=== PATIENT | female | born 1970 | race Asian ===

== ENCOUNTER 2017-01-18 16:41 | Outpatient (CLI) | payer OTHER ==
[~2017-01-18 16:41] MED LIST: CARDIZEM60 MG PO; CELEBREX200 MG PO; DIGOXIN0.25 MG PO; HYDR10TA47 PO; METF500T PO; SPIRONOLACT25 MG PO; XANAX XR1 MG PO; ZANTAC 75 PO
[2017-04-19] MEDS ORDERED: GABA300C2 PO (18:42)
[2017-04-19] MEDS ORDERED: LORA1TAB17 PO (18:43)
[2017-04-19] MEDS ORDERED: PACERONE200 MG PO (18:44)
[2017-04-19] MEDS ORDERED: VITAMIN D-31000 UNIT PO (18:45)
[2017-04-19] MEDS ORDERED: MAGN400T4 PO (18:46)
[2017-04-19] MEDS ORDERED: ASPI-93 PO (18:49)
== END 2017-01-18 19:35 | disposition home or self-care (01) ==
LOC: US 16:41
DX: L02.212 Cutaneous abscess of back [any part, except buttock and flank] (principal)

== ENCOUNTER 2017-01-26 15:30 | Outpatient (CLI) | payer OTHER ==
[2017-04-19] MEDS ORDERED: GABA300C2 PO (18:42)
[2017-04-19] MEDS ORDERED: LORA1TAB17 PO (18:43)
[2017-04-19] MEDS ORDERED: PACERONE200 MG PO (18:44)
[2017-04-19] MEDS ORDERED: VITAMIN D-31000 UNIT PO (18:45)
[2017-04-19] MEDS ORDERED: MAGN400T4 PO (18:46)
[2017-04-19] MEDS ORDERED: ASPI-93 PO (18:49)
== END 2017-01-26 19:42 | disposition home or self-care (01) ==
LOC: RAD 15:30
DX: M25.562 Pain in left knee (principal)

== ENCOUNTER 2017-04-06 20:23 | Outpatient (CLI) | payer OTHER ==
[2017-04-06] MEDS ORDERED: LIPITOR20 MG PO (20:52)
[2017-04-06] MEDS ORDERED: ALTACE1.25 MG PO (20:52)
[2017-04-06] MEDS ORDERED: TRAMADOL HCL100 MG OR (20:53)
[2017-04-06] MEDS ORDERED: FURO40TA93 PO (20:54)
[2017-04-06] MEDS ORDERED: CARV3.12 PO (20:54)
[2017-04-19] MEDS ORDERED: GABA300C2 PO (18:42)
[2017-04-19] MEDS ORDERED: LORA1TAB17 PO (18:43)
[2017-04-19] MEDS ORDERED: PACERONE200 MG PO (18:44)
[2017-04-19] MEDS ORDERED: VITAMIN D-31000 UNIT PO (18:45)
[2017-04-19] MEDS ORDERED: MAGN400T4 PO (18:46)
[2017-04-19] MEDS ORDERED: ASPI-93 PO (18:49)
== END 2017-04-06 20:33 | disposition short-term general hospital (02) ==
LOC: AMB 20:23
DX: I49.8 Other specified cardiac arrhythmias (principal); R53.1 Weakness; Z95.0 Presence of cardiac pacemaker
CPT/HCPCS: A0425; A0427

== ENCOUNTER 2017-04-06 20:35 | Emergency (ER) | payer OTHER ==
[~2017-04-06] VITALS: Ht 157.5 cm; Wt 184.2 kg
[2017-04-06] MEDS ORDERED: ALTACE1.25 MG PO (20:52)
[2017-04-06] MEDS ORDERED: LIPITOR20 MG PO (20:52)
[2017-04-06] MEDS ORDERED: TRAMADOL HCL100 MG OR (20:53)
[2017-04-06] MEDS ORDERED: CARV3.12 PO (20:54)
[2017-04-06] MEDS ORDERED: FURO40TA93 PO (20:54)
[2017-04-06 21:15] LABS: PLATELET COUNT 241 K/uL (152-353)
[2017-04-06 21:20] LABS: POTASSIUM 3.5 mmol/L (3.6-5.2)
[2017-04-06 22:40] VITALS: BP 118/66; TEMP 98
[2017-04-19] MEDS ORDERED: GABA300C2 PO (18:42)
[2017-04-19] MEDS ORDERED: LORA1TAB17 PO (18:43)
[2017-04-19] MEDS ORDERED: PACERONE200 MG PO (18:44)
[2017-04-19] MEDS ORDERED: VITAMIN D-31000 UNIT PO (18:45)
[2017-04-19] MEDS ORDERED: MAGN400T4 PO (18:46)
[2017-04-19] MEDS ORDERED: ASPI-93 PO (18:49)
== END 2017-04-06 22:40 | disposition short-term general hospital (02) ==
LOC: ED 20:35
PROVIDERS: Emergency Medicine
DX: R00.2 Palpitations (principal); I48.92 Unspecified atrial flutter; Z95.810 Presence of automatic (implantable) cardiac defibrillator; R06.02 Shortness of breath
CPT/HCPCS: 80053; 82550; 83880; 84484; 85027; 93005; 96360; 96361; 96365; 96372; 99285; J0282; J1650

== ENCOUNTER 2017-10-17 02:39 | Emergency (ER) | payer OTHER ==
[~2017-10-17] VITALS: Ht 157.5 cm; Wt 178.3 kg
[~2017-10-17 02:39] MED LIST changes: +ALTACE1.25 MG PO; +ASPI-93 PO; +CARV3.12 PO; +FURO40TA93 PO; +GABA300C2 PO; +LIPITOR20 MG PO; +LORA1TAB17 PO; +MAGN400T4 PO; +PACERONE200 MG PO; +TRAMADOL HCL100 MG OR; +VITAMIN D-31000 UNIT PO
[2017-10-17 04:23] LABS: PLATELET COUNT 170 K/uL (152-353)
[2017-10-17 04:44] LABS: POTASSIUM 3.8 mmol/L (3.6-5.2); SODIUM 143 mmol/L (136-145)
[2017-10-17 07:03] VITALS: BP 119/81; TEMP 97.8
[2017-11-16] MEDS ORDERED: AZIT250T3 PO (03:46)
[2017-11-16] MEDS ORDERED: PROMETHAZINE HC50 MG OR (03:47)
[2017-11-16] MEDS ORDERED: PREDNISONE10 M1 OR (03:50)
[2017-11-16] MEDS ORDERED: ALBU0.5N13 IN (03:51)
[2017-11-16] MEDS ORDERED: EDLUAR10 MG PO (03:53)
== END 2017-10-17 07:09 | disposition home or self-care (01) ==
LOC: EDBD 02:39 → ED 02:39
PROVIDERS: Specialist
DX: I50.9 Heart failure, unspecified (principal); J81.1 Chronic pulmonary edema; E66.01 Morbid (severe) obesity due to excess calories; R00.0 Tachycardia, unspecified; I44.7 Left bundle-branch block, unspecified
CPT/HCPCS: 36415; 80048; 83880; 84484; 85027; 93005; 96374; 96375; 96376; 99284; J1642; J1940; J2270; J2405; J2550

== ENCOUNTER 2018-02-16 18:38 | Outpatient (CLI) | payer OTHER ==
[~2018-02-16 18:38] MED LIST changes: +ALBU0.5N13 IN; +AZIT250T3 PO; +EDLUAR10 MG PO; +PREDNISONE10 M1 OR; +PROMETHAZINE HC50 MG OR
[2018-02-16] MEDS ORDERED: LIPITOR40 MG PO (22:34)
[2018-02-16] MEDS ORDERED: FURO40TA93 PO (22:34)
[2018-02-16] MEDS ORDERED: CARV3.12 PO (22:34)
[2018-02-16] MEDS ORDERED: LORA1TAB17 PO (22:35)
[2018-02-16] MEDS ORDERED: PROZAC10 MG PO (22:36)
[2018-02-16] MEDS ORDERED: GABA300C2 PO (22:36)
[2018-02-16] MEDS ORDERED: PERCOCET1 TA3 PO (22:37)
[2018-02-16] MEDS ORDERED: PROM25TA52 PO (22:37)
== END 2018-02-16 18:50 | disposition short-term general hospital (02) ==
LOC: AMB 18:38
DX: M54.2 Cervicalgia (principal); M54.89 Other dorsalgia; E66.8 Other obesity; W18.39XA Other fall on same level, initial encounter; Y92.098 Other place in other non-institutional residence as the place of occurrence of the external cause
CPT/HCPCS: A0425; A0429

== ENCOUNTER 2018-02-16 19:58 | Inpatient (IN) | payer OTHER ==
[~2018-02-16] VITALS: Ht 157.5 cm; Wt 219.2 kg
[2018-02-16 21:24] LABS: POTASSIUM 3.2 mmol/L (3.6-5.2); SODIUM 142 mmol/L (136-145)
[2018-02-16 21:30] VITALS: BP 122/80
[2018-02-16 21:53] LABS: PLATELET COUNT 131 K/uL (152-353)
[2018-02-16 22:28] VITALS: BP 113/82; TEMP 98
[2018-02-16] MEDS ORDERED: LIPITOR40 MG PO (22:34)
[2018-02-16] MEDS ORDERED: FURO40TA93 PO (22:34)
[2018-02-16] MEDS ORDERED: CARV3.12 PO (22:34)
[2018-02-16] MEDS ORDERED: LORA1TAB17 PO (22:35)
[2018-02-16] MEDS ORDERED: GABA300C2 PO (22:36)
[2018-02-16] MEDS ORDERED: PROZAC10 MG PO (22:36)
[2018-02-16] MEDS ORDERED: PROM25TA52 PO (22:37)
[2018-02-16] MEDS ORDERED: PERCOCET1 TA3 PO (22:37)
[2018-02-17] VITALS (16 sets, daily range): BP systolic 96–129; BP diastolic 44–110; TEMP 96.2–97.5; Ht 157.5 cm; Wt 219.2 kg
[2018-02-17 11:17] LABS: PLATELET COUNT 162 K/uL (152-353)
[2018-02-17 11:48] LABS: POTASSIUM 3.5 mmol/L (3.6-5.2)
[2018-02-18] VITALS (14 sets, daily range): BP systolic 108–147; BP diastolic 75–103; TEMP 97.6–98.2
[2018-02-18 08:42] LABS: PLATELET COUNT 120 K/uL (152-353)
[2018-02-18 08:54] LABS: POTASSIUM 3.5 mmol/L (3.6-5.2)
== END 2018-02-18 17:15 | disposition short-term general hospital (02) | DRG 641 ==
LOC: ED 19:58 → ICU 22:58 → MED/SURG 22:58 → ICU 22:58 → MED/SURG 22:58 → ICU 02-17 13:50 → MED/SURG 02-17 13:50 → ICU 02-18 17:15
PROVIDERS: Family Medicine; ADMIT Specialist
DX: E87.8 Other disorders of electrolyte and fluid balance, not elsewhere classified (principal); N39.0 Urinary tract infection, site not specified; F13.20 Sedative, hypnotic or anxiolytic dependence, uncomplicated; E46 Unspecified protein-calorie malnutrition; E87.6 Hypokalemia; R06.89 Other abnormalities of breathing; E83.51 Hypocalcemia; R06.09 Other forms of dyspnea; R41.82 Altered mental status, unspecified; R06.4 Hyperventilation; E66.01 Morbid (severe) obesity due to excess calories; E86.0 Dehydration; D64.89 Other specified anemias; B96.20 Unspecified Escherichia coli [E. coli] as the cause of diseases classified elsewhere; E13.42 Other specified diabetes mellitus with diabetic polyneuropathy; J01.91 Acute recurrent sinusitis, unspecified; J20.9 Acute bronchitis, unspecified; I50.9 Heart failure, unspecified
CPT/HCPCS: 36415; 36600; 51702; 80048; 80053; 81000; 82805; 83735; 83880; 84100; 84484; 85027; 85379; 87077; 87086; 87088; 87186; 93005; 94760; 96366; 96372; 99283; J0610; J1170; J1885; J2550; J3475

== ENCOUNTER 2018-04-05 15:27 | Emergency (ER) | payer OTHER ==
[~2018-04-05] VITALS: Ht 167.6 cm; Wt 181.4 kg
[~2018-04-05 15:27] MED LIST changes: +LIPITOR40 MG PO; +PERCOCET1 TA3 PO; +PROM25TA52 PO; +PROZAC10 MG PO
[2018-04-05 15:51] VITALS: TEMP 98.7
[2018-04-05 16:53] LABS: PLATELET COUNT 180 K/uL (152-353)
[2018-04-05 17:00] LABS: POTASSIUM 3.6 mmol/L (3.6-5.2)
[2018-04-05 18:15] VITALS: BP 98/42
== END 2018-04-05 18:22 | disposition short-term general hospital (02) ==
LOC: ED 15:27
PROVIDERS: Family Medicine
PROC: 0T9B70Z Drainage of Bladder with Drainage Device, Via Natural or Artificial Opening (ICD-10-PCS; principal; 2018-04-05)
DX: J81.1 Chronic pulmonary edema (principal); E87.2 Acidosis; R06.02 Shortness of breath; W06.XXXA Fall from bed, initial encounter; Y92.89 Other specified places as the place of occurrence of the external cause
CPT/HCPCS: 36415; 36600; 51702; 80053; 82805; 83880; 85027; 85379; 93005; 96374; 99285; J1940

== ENCOUNTER 2018-04-05 18:22 | Outpatient (CLI) | payer OTHER | END 2018-04-05 19:50 | disposition short-term general hospital (02) | LOC: AMB 18:22 | DX: J81.1 Chronic pulmonary edema (principal); E87.2 Acidosis; R06.02 Shortness of breath; W06.XXXA Fall from bed, initial encounter; Y92.89 Other specified places as the place of occurrence of the external cause | CPT/HCPCS: A0425; A0427 ==